=== PATIENT | male | born 1980 | race Caucasian/White ===

== ENCOUNTER 2017-09-18 18:29 | Emergency (ER) | payer BC, SELFPAY ==
[2017-09-18 18:38] VITALS: BP 128/87; PULSE 89; RESP 18; TEMP 36.9; O2SAT 98; BMI 59.8
[2017-09-18 18:46] VITALS: BP 128/87; PULSE 89; RESP 18; TEMP 36.9; O2SAT 98
== END 2017-09-18 18:46 | disposition home or self-care (01) ==
PROVIDERS: Emergency Provider Nurse Practitioner Family; Family Provider Internal Medicine Adolescent Medicine; PCP Internal Medicine Adolescent Medicine
DX: Z23 Encounter for immunization (principal)
CPT/HCPCS: 90471; 90714; 99202

== ENCOUNTER → 2023-01-01 15:17 | Outpatient (CLI) | payer BC, SELFPAY | LOC: RT 15:17 | PROVIDERS: PCP Internal Medicine Adolescent Medicine; Visit Provider Physician Assistant | DX: I10 Essential (primary) hypertension (principal); R06.83 Snoring; R40.0 Somnolence; R53.83 Other fatigue | CPT/HCPCS: 93306 ==

== ENCOUNTER → 2023-01-07 14:42 | Outpatient (CLI) | payer BC, SELFPAY | PROVIDERS: PCP Internal Medicine Adolescent Medicine; Visit Provider Physician Assistant | DX: G47.33 Obstructive sleep apnea (adult) (pediatric) (principal); I10 Essential (primary) hypertension; R06.83 Snoring; R40.0 Somnolence; R53.83 Other fatigue | CPT/HCPCS: G0399 ==

== ENCOUNTER 2024-03-09 14:53 | Outpatient (CLI) | payer BC, SELFPAY ==
[2024-03-09 15:10] LABS: Basophils # 0.2 K/mm3 (0-0.2); Basophils % 1.5 % (0.1-2.0); Eosinophils # 0.2 K/mm3 (0.0-0.4); Eosinophils % 1.7 % (0.1-12.0); Hematocrit 48.5 % (42.0-52.0); Hemoglobin 16.3 g/dL (14.1-18.0); Lymphocytes # 2.6 K/mm3 (0.7-4.5); Lymphocytes % 24.2 % (10-50); Mean Corpuscular HGB Conc 33.7 g/dL (31.8-35.4); Mean Corpuscular Hemoglobin 31.1 pg (27.0-31.2); Mean Corpuscular Volume 92.3 fl (80-94); Mean Platelet Volume 8.2 fl (7.4-10.4); Monocytes # 0.6 K/mm3 (0.1-1.0); Monocytes % 5.5 % (1.7-9.3); Neutrophils # 7.2 K/mm3 (1.8-7.8); Platelet Count 257 K/mm3 (142-424); Red Blood Count 5.25 M/mm3 (4.60-6.20); Red Cell Distribution Width 13.3 % (11.5-17.5); White Blood Count 10.7 K/mm3 (4.8-10.8)
[2024-03-09 15:57] LABS: Albumin Level 4.2 g/dl (3.5-5.0); Chloride 105 mmol/L (98-107); Sodium 139 mmol/L (136-145)
[2024-03-09 15:58] LABS: Potassium 3.4 mmoL/L (3.5-5.1)
[2024-03-09 16:00] LABS: Alanine Aminotransferase 31 U/L (12-78); Alkaline Phosphatase 111 U/L (38-126); Anion Gap 10.4 mEq/L (5-15); Aspartate Amino Transferase 33 U/L (17-59); Bilirubin,Direct 0.3 mg/dl (0.0-0.4); Bilirubin,Indirect 0.4 mg/dL (0.0-0.9); Bilirubin,Total 0.7 mg/dl (0.2-1.3); Bilirubin,Unconjugated 0.3 mg/dL (0.0-1.1); Blood Urea Nitrogen 15 mg/dl (9-20); Calcium 9.3 mg/dl (8.4-10.2); Carbon Dioxide 27 mmol/L (22.0-30.0); Chol/HDL Ratio 4.1 (1-3.5); Cholesterol 182 mg/dl (140-200); Estimated Glomerular Filt Rate 66 ml/min (>60); GFR (African American) 80 ML/MIN (>60); Glucose 102 mg/dl (74-100); HDL Cholesterol 44 mg/dl (40-60); Triglycerides 199 mg/dl (30-150); VLDL Cholesterol 40 mg/dL (0-40)
[2024-03-09 16:12] LABS: Direct LDL Cholesterol 92.23 mg/dL (100-129)
[2024-03-09 16:17] LABS: Free T4 (Free Thyroxine) 1.29 ng/dl (0.78-2.19)
[2024-03-09 16:32] LABS: Thyroid Stimulating Hormone 0.34 uIU/mL (0.465-4.68)
== END 2024-03-09 23:59 | disposition home or self-care (01) ==
LOC: LAB 14:54
PROVIDERS: PCP Internal Medicine Adolescent Medicine; Visit Provider Nurse Practitioner
DX: R06.00 Dyspnea, unspecified; R53.83 Other fatigue; R40.0 Somnolence; R06.83 Snoring; K21.9 Gastro-esophageal reflux disease without esophagitis; I11.9 Hypertensive heart disease without heart failure
CPT/HCPCS: 36415; 80048; 80061; 80076; 84439; 84443; 85025